=== PATIENT | male | born 1995 | race Caucasian/White ===

== ENCOUNTER 2020-06-20 00:57 | Emergency (ER) | payer SELFPAY ==
[~2020-06-20] VITALS: Ht 182.9 cm; Wt 113.6 kg
[~2020-06-20 00:57] MED LIST: EFFEXOR XR75 MG/CAP PO; MOTRIN 800800 MG/TAB PO; WELLBUTRIN XL300 M1 PO
[2020-06-20 00:58] VITALS: TEMP 97.6
[2020-06-20 01:36] LABS: ARTERIAL BLD GAS TCO2 CT 12.5; ARTERIAL BLOOD GAS BASE EXCESS -12.2 (-2-2); ARTERIAL BLOOD GAS HCO3 11.7 meq/L (22-26); ARTERIAL BLOOD GAS PCO2 24.3 mmHg (35-45); ARTERIAL BLOOD GAS PO2 83.4 mmHg (80-100)
[2020-06-20 01:49] LABS: MEAN CELL VOLUME 96 fl (80.0-100.0); MEAN CORPUSCULAR HGB CONC 34 g/dl (33.0-37.0); MEAN PLATELET VOLUME 12.1 fl (7.4-10.4); PLATELET COUNT 162 K/mm3 (130-400); RED BLOOD COUNT 5.53 M/mm3 (4.20-5.60); REDCELL DISTRIBUTION WIDTH-CV 13.1 % (11.5-14.5)
[2020-06-20 01:50] LABS: HEMATOCRIT 53.2 % (42.0-52.0); HEMOGLOBIN 18.3 g/dl (13.5-18.0); MEAN CORPUSCULAR HEMOGLOBIN 33 pg (27.0-31.0)
[2020-06-20 02:07] LABS: BAND 1 % (0-10); EOSINOPHIL 1 % (0-4); LYMPHOCYTE 24 % (20.0-51.0); NEUTROPHILS 63 % (42.0-75.2)
[2020-06-20 02:08] LABS: PLATELET ESTIMATE DECREASED (NORMAL)
[2020-06-20 02:18] LABS: INR 5.2 (0.8-3.0); PROTHROMBIN TIME 59.3 SECONDS (9.7-12.8)
[2020-06-20 02:53] LABS: ALBUMIN 4.1 gm/dL (3.5-5.0); BILIRUBIN,TOTAL 1.4 mg/dL (0.0-1.0); CALCIUM 8.6 mg/dL (8.4-10.2); CREATININE, serum 1.42 (0.66-1.25); TOTAL PROTEIN 7.9 gm/dL (6.4-8.2)
[2020-06-20 02:57] LABS: POTASSIUM 2.7 mmol/L (3.4-5.0)
[2020-06-20 02:58] LABS: PARTIAL THROMBOPLASTIN TIME > 400.0 SECONDS (26.0-37.0)
[2020-06-20 03:37] VITALS: BP 125/88; PULSE 124
== END 2020-06-20 03:37 | disposition short-term general hospital (02) ==
LOC: COL.ER 00:57
PROVIDERS: Emergency Medicine
DX: U07.1 COVID-19 (principal); F41.0 Panic disorder [episodic paroxysmal anxiety]; F17.290 Nicotine dependence, other tobacco product, uncomplicated
CPT/HCPCS: J1644; J2997; J7030; Q9967

== ENCOUNTER 2020-07-06 16:18 | Emergency (ER) | payer SELFPAY ==
[~2020-07-06] VITALS: Ht 182.9 cm; Wt 111.4 kg
[2020-07-06 16:30] VITALS: TEMP 97.8
[2020-07-06 17:13] LABS: BASO # 0.1 (0.0-0.2); BASO % 1.2 % (0.0-2.0); EOS # 0.2 (0.0-0.7); EOS % 2.3 % (0-4.0); GRAN # 4.6 (1.4-6.5); HEMATOCRIT 48.3 % (42.0-52.0); HEMOGLOBIN 16.5 g/dl (13.5-18.0); LYMPH # 2.2 (1.2-3.4); LYMPH % 29.4 % (20.0-51.0); MEAN CELL VOLUME 94 fl (80.0-100.0); MEAN CORPUSCULAR HEMOGLOBIN 32 pg (27.0-31.0); MEAN CORPUSCULAR HGB CONC 34 g/dl (33.0-37.0); MEAN PLATELET VOLUME 10.4 fl (7.4-10.4); MONO # 0.4 (0.1-0.6); MONO % 4.8 % (1.7-9.3); PLATELET COUNT 420 K/mm3 (130-400); RED BLOOD COUNT 5.12 M/mm3 (4.20-5.60)
[2020-07-06 17:29] LABS: ARTERIAL BLD GAS O2 SATURATION 96.2 % (92-100); ARTERIAL BLD GAS TCO2 CT 24.2; ARTERIAL BLOOD GAS BASE EXCESS 1.3 (-2-2); ARTERIAL BLOOD GAS HCO3 23.2 meq/L (22-26); ARTERIAL BLOOD GAS PCO2 30.2 mmHg (35-45); ARTERIAL BLOOD GAS PO2 77.2 mmHg (80-100)
[2020-07-06 17:29] LABS: ALBUMIN 4.6 gm/dL (3.5-5.0); BILIRUBIN,TOTAL 0.6 mg/dL (0.0-1.0); CALCIUM 9.9 mg/dL (8.4-10.2); CREATININE, serum 1.06 (0.66-1.25); POTASSIUM 3.5 mmol/L (3.4-5.0); TOTAL PROTEIN 9.4 gm/dL (6.4-8.2)
[2020-07-06 19:32] VITALS: BP 145/91; PULSE 96
== END 2020-07-06 19:42 | disposition home or self-care (01) ==
LOC: COL.ER 16:18
PROVIDERS: Family Medicine
DX: U07.1 COVID-19 (principal); I26.99 Other pulmonary embolism without acute cor pulmonale; F17.290 Nicotine dependence, other tobacco product, uncomplicated
CPT/HCPCS: J7120; Q9967

== ENCOUNTER 2020-07-23 01:22 | Emergency (ER) | payer BC ==
[~2020-07-23] VITALS: Ht 182.9 cm; Wt 111.4 kg
[2020-07-23] MEDS ORDERED: ELIQUIS 5MG PO (01:35)
[2020-07-23] MEDS ORDERED: NEURONTIN300 MG/CAP PO (01:35)
[2020-07-23 01:37] VITALS: TEMP 97.7
[2020-07-23 01:56] LABS: BASO # 0.1 (0.0-0.2); BASO % 0.8 % (0.0-2.0); EOS # 0.2 (0.0-0.7); EOS % 2.6 % (0-4.0); GRAN # 2.9 (1.4-6.5); GRAN % 33.9 % (42.2-75.2); HEMATOCRIT 49.5 % (42.0-52.0); HEMOGLOBIN 17.4 g/dl (13.5-18.0); LYMPH # 4.8 (1.2-3.4); LYMPH % 55.8 % (20.0-51.0); MEAN CELL VOLUME 93 fl (80.0-100.0); MEAN CORPUSCULAR HEMOGLOBIN 33 pg (27.0-31.0); MEAN CORPUSCULAR HGB CONC 35 g/dl (33.0-37.0); MONO # 0.6 (0.1-0.6); MONO % 6.5 % (1.7-9.3); PLATELET COUNT 254 K/mm3 (130-400); RED BLOOD COUNT 5.33 M/mm3 (4.20-5.60); REDCELL DISTRIBUTION WIDTH-CV 13.7 % (11.5-14.5)
[2020-07-23 02:42] LABS: ALANINE AMINOTRANSFERASE 89 U/L (4-49); ALBUMIN 4.7 gm/dL (3.5-5.0); ALKALINE PHOSPHATASE 134 U/L (50-136); ANION GAP 18 mmol/L (7-16); AST,SGOT 89 U/L (15-37); BILIRUBIN,TOTAL 0.7 mg/dL (0.0-1.0); BLOOD UREA NITROGEN 8 mg/dL (9-20); CALCIUM 9.4 mg/dL (8.4-10.2); CARBON DIOXIDE 22 mmol/L (22-30); CHLORIDE 101 mmol/L (98-107); CREATININE, serum 0.99 (0.66-1.25); GLUCOSE 143 mg/dL (74-106); LIPASE 109 U/L (23-300); POTASSIUM 3.5 mmol/L (3.4-5.0); SODIUM 141 mmol/L (137-145); TOTAL PROTEIN 8.8 gm/dL (6.4-8.2)
[2020-07-23 02:45] LABS: INR 1.2 (0.8-3.0); PROTHROMBIN TIME 13.1 SECONDS (9.7-12.8)
[2020-07-23 02:47] LABS: PARTIAL THROMBOPLASTIN TIME 37.5 SECONDS (26.0-37.0)
[2020-07-23 02:55] LABS: TROPONIN-I < 0.012 ng/mL (0.000-0.035)
[2020-07-23 07:16] VITALS: BP 133/95; PULSE 102
== END 2020-07-23 07:16 | disposition home or self-care (01) ==
LOC: COL.ER 01:22
PROVIDERS: Emergency Medicine
DX: R06.02 Shortness of breath (principal); R00.0 Tachycardia, unspecified; I26.92 Saddle embolus of pulmonary artery without acute cor pulmonale; F17.290 Nicotine dependence, other tobacco product, uncomplicated; Z79.01 Long term (current) use of anticoagulants; Z86.718 Personal history of other venous thrombosis and embolism
CPT/HCPCS: Q9967

== ENCOUNTER 2020-08-18 22:46 | Emergency (ER) | payer BC ==
[~2020-08-18] VITALS: Ht 182.9 cm; Wt 113.6 kg
[~2020-08-18 22:46] MED LIST changes: +ELIQUIS 5MG PO; +NEURONTIN300 MG/CAP PO
[2020-08-18 22:55] VITALS: TEMP 98.3
[2020-08-18 23:39] LABS: BASO # 0.1 (0.0-0.2); BASO % 0.9 % (0.0-2.0); EOS # 0.2 (0.0-0.7); EOS % 2.6 % (0-4.0); GRAN # 4.1 (1.4-6.5); GRAN % 59.9 % (42.2-75.2); HEMATOCRIT 46.3 % (42.0-52.0); HEMOGLOBIN 16.3 g/dl (13.5-18.0); LYMPH # 1.9 (1.2-3.4); LYMPH % 26.7 % (20.0-51.0); MEAN CELL VOLUME 92 fl (80.0-100.0); MEAN CORPUSCULAR HEMOGLOBIN 32 pg (27.0-31.0); MEAN CORPUSCULAR HGB CONC 35 g/dl (33.0-37.0); MEAN PLATELET VOLUME 10.2 fl (7.4-10.4); MONO # 0.7 (0.1-0.6); MONO % 9.8 % (1.7-9.3); PLATELET COUNT 340 K/mm3 (130-400); RED BLOOD COUNT 5.06 M/mm3 (4.20-5.60)
[2020-08-18 23:46] LABS: INR 2.8 (0.8-3.0); PROTHROMBIN TIME 31.7 SECONDS (9.7-12.8)
[2020-08-18 23:50] LABS: ALANINE AMINOTRANSFERASE 54 U/L (4-49); ALBUMIN 4.4 gm/dL (3.5-5.0); ALKALINE PHOSPHATASE 90 U/L (50-136); ANION GAP 11 mmol/L (7-16); AST,SGOT 38 U/L (15-37); BILIRUBIN,TOTAL 0.6 mg/dL (0.0-1.0); BLOOD UREA NITROGEN 11 mg/dL (9-20); CALCIUM 9.6 mg/dL (8.4-10.2); CARBON DIOXIDE 21 mmol/L (22-30); CHLORIDE 105 mmol/L (98-107); CREATININE, serum 0.95 (0.66-1.25); GLUCOSE 136 mg/dL (74-106); LIPASE 152 U/L (23-300); POTASSIUM 3.3 mmol/L (3.4-5.0); SODIUM 138 mmol/L (137-145); TOTAL PROTEIN 8.3 gm/dL (6.4-8.2)
[2020-08-19 00:08] LABS: TROPONIN-I < 0.012 ng/mL (0.000-0.035)
[2020-08-19 01:25] VITALS: BP 120/78; PULSE 81
== END 2020-08-19 01:25 | disposition home or self-care (01) ==
LOC: COL.ER 22:46
PROVIDERS: Physician Assistant
DX: R07.89 Other chest pain (principal); F17.210 Nicotine dependence, cigarettes, uncomplicated; Z86.718 Personal history of other venous thrombosis and embolism; Z86.711 Personal history of pulmonary embolism; Z86.16 Personal history of COVID-19; Z79.01 Long term (current) use of anticoagulants

== ENCOUNTER 2020-08-24 08:07 | Inpatient (IN) | payer BC ==
[2020-08-24] VITALS (244 sets, daily range): BP systolic 120–126; BP diastolic 85–94; PULSE 69–79; TEMP 98–99; O2SAT 91–99
[~2020-08-24] VITALS: Ht 182.9 cm; Wt 116.9 kg
[2020-08-24] MEDS ORDERED: FOLIC ACID 11 MG/TA1 PO (09:53)
[2020-08-24] MEDS ORDERED: PROTONIX 40MG T40 MG PO (09:54)
[2020-08-24] MEDS ORDERED: COUMADIN 1010 MG/TAB PO (09:54)
[2020-08-24] MEDS ORDERED: NATURE'S BLEND100 M2 PO (09:55)
[2020-08-24] MEDS ORDERED: TYLENOL 325MG325 MG PO (09:56)
[2020-08-24] MEDS ORDERED: LEXAPRO 10MG10 MG PO (09:57)
[2020-08-24 10:36] LABS: BASO # 0.1 (0.0-0.2); BASO % 1.1 % (0.0-2.0); EOS # 0.1 (0.0-0.7); EOS % 2.2 % (0-4.0); GRAN # 2.5 (1.4-6.5); GRAN % 55.8 % (42.2-75.2); HEMATOCRIT 47.7 % (42.0-52.0); LYMPH # 1.1 (1.2-3.4); LYMPH % 24.6 % (20.0-51.0); MEAN CELL VOLUME 95 fl (80.0-100.0); MEAN CORPUSCULAR HEMOGLOBIN 32 pg (27.0-31.0); MEAN CORPUSCULAR HGB CONC 34 g/dl (33.0-37.0); MEAN PLATELET VOLUME 9.7 fl (7.4-10.4); MONO # 0.7 (0.1-0.6); MONO % 16.1 % (1.7-9.3); PLATELET COUNT 236 K/mm3 (130-400); RED BLOOD COUNT 5.03 M/mm3 (4.20-5.60)
[2020-08-24 10:44] LABS: CALCIUM 8.9 mg/dL (8.4-10.2); CREATININE, serum 1.02 (0.66-1.25); POTASSIUM 4.5 mmol/L (3.4-5.0)
[2020-08-24 12:05] LABS: INR 2.5 (0.8-3.0)
[2020-08-24 17:59] LABS: INR 2.2 (0.8-3.0); PROTHROMBIN TIME 24.4 SECONDS (9.7-12.8)
[2020-08-25] VITALS (701 sets, daily range): BP systolic 101–139; BP diastolic 59–90; PULSE 68–83; TEMP 98.3–98.7; O2SAT 81–100
[2020-08-25 05:41] LABS: BASO % 0.8 % (0.0-2.0); EOS # 0.1 (0.0-0.7); EOS % 2.7 % (0-4.0); GRAN # 3.3 (1.4-6.5); GRAN % 63.4 % (42.2-75.2); HEMATOCRIT 41.9 % (42.0-52.0); HEMOGLOBIN 14.6 g/dl (13.5-18.0); LYMPH # 0.9 (1.2-3.4); LYMPH % 18.1 % (20.0-51.0); MEAN CELL VOLUME 94 fl (80.0-100.0); MEAN CORPUSCULAR HEMOGLOBIN 33 pg (27.0-31.0); MEAN CORPUSCULAR HGB CONC 35 g/dl (33.0-37.0); MEAN PLATELET VOLUME 9.5 fl (7.4-10.4); MONO # 0.8 (0.1-0.6); MONO % 14.6 % (1.7-9.3); PLATELET COUNT 211 K/mm3 (130-400); RED BLOOD COUNT 4.48 M/mm3 (4.20-5.60); REDCELL DISTRIBUTION WIDTH-CV 13.2 % (11.5-14.5)
[2020-08-25 05:48] LABS: INR 1.6 (0.8-3.0); PROTHROMBIN TIME 17.6 SECONDS (9.7-12.8)
[2020-08-26] VITALS (381 sets, daily range): BP systolic 105–121; BP diastolic 70–97; PULSE 56–88; TEMP 98–99; O2SAT 83–99
[2020-08-26 05:48] LABS: BASO # 0.1 (0.0-0.2); BASO % 1.1 % (0.0-2.0); EOS # 0.2 (0.0-0.7); EOS % 3.7 % (0-4.0); GRAN # 2.2 (1.4-6.5); GRAN % 47.9 % (42.2-75.2); HEMATOCRIT 42.8 % (42.0-52.0); HEMOGLOBIN 14.5 g/dl (13.5-18.0); LYMPH # 1.4 (1.2-3.4); LYMPH % 30.2 % (20.0-51.0); MEAN CELL VOLUME 94 fl (80.0-100.0); MEAN CORPUSCULAR HEMOGLOBIN 32 pg (27.0-31.0); MEAN CORPUSCULAR HGB CONC 34 g/dl (33.0-37.0); MEAN PLATELET VOLUME 9.9 fl (7.4-10.4); MONO # 0.8 (0.1-0.6); MONO % 16.7 % (1.7-9.3); PLATELET COUNT 193 K/mm3 (130-400); RED BLOOD COUNT 4.57 M/mm3 (4.20-5.60)
[2020-08-26 06:44] LABS: INR 1.2 (0.8-3.0); PROTHROMBIN TIME 13.1 SECONDS (9.7-12.8)
[2020-08-26] MEDS ORDERED: LOVENOX120 MG/0.8 SQ (14:33)
[2020-08-26 14:57] LABS: COLLECTION METHOD CLEAN CATCH
[2020-08-26 15:05] LABS: PH 6 (5-8); SQUAMOUS EPITHELIAL None Seen /hpf; URINE APPEARANCE Clear; URINE BACTERIA None Seen /hpf; URINE BILIRUBIN Negative (NEGATIVE); URINE BLOOD 2+ (NEGATIVE); URINE COLOR Colorless; URINE GLUCOSE Negative (NEGATIVE); URINE KETONE Negative (NEGATIVE); URINE LEUKOCYTE ESTERASE Negative (NEGATIVE); URINE NITRATE Negative (NEGATIVE); URINE PROTEIN(semi-quant) Negative (NEGATIVE); URINE RBC 0-2 /hpf; URINE UROBILINOGEN Negative (NEGATIVE)
== END 2020-08-26 15:20 | disposition home or self-care (01) | DRG 301 ==
LOC: ICU 09:24
PROVIDERS: Nurse Practitioner; ADMIT Internal Medicine Interventional Cardiology
DX: I82.432 Acute embolism and thrombosis of left popliteal vein (principal); I82.4Z2 Acute embolism and thrombosis of unspecified deep veins of left distal lower extremity; F17.290 Nicotine dependence, other tobacco product, uncomplicated; Z86.16 Personal history of COVID-19; Z86.711 Personal history of pulmonary embolism; Z79.01 Long term (current) use of anticoagulants
CPT/HCPCS: J1644; J2997; J7030; J7040

== ENCOUNTER 2020-09-07 11:29 | Emergency (ER) | payer BC ==
[~2020-09-07] VITALS: Ht 182.9 cm; Wt 115.0 kg
[~2020-09-07 11:29] MED LIST changes: +COUMADIN 1010 MG/TAB PO; +FOLIC ACID 11 MG/TA1 PO; +LEXAPRO 10MG10 MG PO; +LOVENOX120 MG/0.8 SQ; +NATURE'S BLEND100 M2 PO; +PROTONIX 40MG T40 MG PO; +TYLENOL 325MG325 MG PO
[2020-09-07 11:37] VITALS: TEMP 97.4
[2020-09-07 12:11] LABS: BASO % 0.8 % (0.0-2.0); EOS # 0.2 (0.0-0.7); EOS % 3.7 % (0-4.0); GRAN # 3.1 (1.4-6.5); GRAN % 59.8 % (42.2-75.2); HEMATOCRIT 45.2 % (42.0-52.0); HEMOGLOBIN 15.5 g/dl (13.5-18.0); LYMPH # 1.4 (1.2-3.4); LYMPH % 26.4 % (20.0-51.0); MEAN CELL VOLUME 91 fl (80.0-100.0); MEAN CORPUSCULAR HEMOGLOBIN 31 pg (27.0-31.0); MEAN CORPUSCULAR HGB CONC 34 g/dl (33.0-37.0); MONO # 0.5 (0.1-0.6); MONO % 9.1 % (1.7-9.3); PLATELET COUNT 282 K/mm3 (130-400); RED BLOOD COUNT 4.95 M/mm3 (4.20-5.60); REDCELL DISTRIBUTION WIDTH-CV 13.1 % (11.5-14.5)
[2020-09-07 12:14] LABS: INR 4.7 (0.8-3.0)
[2020-09-07 12:15] LABS: ALANINE AMINOTRANSFERASE 47 U/L (4-49); ALBUMIN 4.5 gm/dL (3.5-5.0); ALKALINE PHOSPHATASE 82 U/L (50-136); ANION GAP 14 mmol/L (7-16); AST,SGOT 44 U/L (15-37); BILIRUBIN,TOTAL 0.3 mg/dL (0.0-1.0); BLOOD UREA NITROGEN 9 mg/dL (9-20); CALCIUM 9.3 mg/dL (8.4-10.2); CARBON DIOXIDE 24 mmol/L (22-30); CHLORIDE 103 mmol/L (98-107); CREATININE, serum 1.06 (0.66-1.25); GLUCOSE 97 mg/dL (74-106); POTASSIUM 3.8 mmol/L (3.4-5.0); SODIUM 141 mmol/L (137-145); TOTAL PROTEIN 8.6 gm/dL (6.4-8.2)
[2020-09-07 12:28] LABS: TROPONIN-I < 0.012 ng/mL (0.000-0.035)
[2020-09-07] MEDS ORDERED: PROTONIX 40MG T40 MG PO (14:10)
[2020-09-07 14:15] VITALS: BP 101/68; PULSE 68
== END 2020-09-07 14:16 | disposition home or self-care (01) ==
LOC: COL.ER 11:29
PROVIDERS: Nurse Practitioner Primary Care
DX: R06.00 Dyspnea, unspecified (principal); D68.59 Other primary thrombophilia; R07.9 Chest pain, unspecified; F41.9 Anxiety disorder, unspecified; Z86.718 Personal history of other venous thrombosis and embolism; Z86.16 Personal history of COVID-19; Z86.711 Personal history of pulmonary embolism; Z79.01 Long term (current) use of anticoagulants; Z87.891 Personal history of nicotine dependence
CPT/HCPCS: Q9967

== ENCOUNTER 2020-09-11 09:01 | Emergency (ER) | payer BC ==
[~2020-09-11] VITALS: Ht 182.9 cm; Wt 115.0 kg
[2020-09-11 09:18] VITALS: TEMP 98
[2020-09-11 09:45] LABS: BASO # 0.1 (0.0-0.2); BASO % 1.1 % (0.0-2.0); EOS # 0.2 (0.0-0.7); EOS % 3.7 % (0-4.0); GRAN # 3.2 (1.4-6.5); GRAN % 59.5 % (42.2-75.2); HEMATOCRIT 45.4 % (42.0-52.0); HEMOGLOBIN 15.4 g/dl (13.5-18.0); LYMPH # 1.5 (1.2-3.4); LYMPH % 26.8 % (20.0-51.0); MEAN CELL VOLUME 92 fl (80.0-100.0); MEAN CORPUSCULAR HEMOGLOBIN 31 pg (27.0-31.0); MEAN CORPUSCULAR HGB CONC 34 g/dl (33.0-37.0); MEAN PLATELET VOLUME 9.8 fl (7.4-10.4); MONO # 0.5 (0.1-0.6); MONO % 8.5 % (1.7-9.3); PLATELET COUNT 319 K/mm3 (130-400); RED BLOOD COUNT 4.93 M/mm3 (4.20-5.60); REDCELL DISTRIBUTION WIDTH-CV 13.1 % (11.5-14.5)
[2020-09-11 09:59] LABS: ALANINE AMINOTRANSFERASE 32 U/L (4-49); ALBUMIN 4.4 gm/dL (3.5-5.0); ALKALINE PHOSPHATASE 87 U/L (50-136); ANION GAP 11 mmol/L (7-16); AST,SGOT 35 U/L (15-37); BILIRUBIN,TOTAL 0.3 mg/dL (0.0-1.0); BLOOD UREA NITROGEN 12 mg/dL (9-20); CALCIUM 9.2 mg/dL (8.4-10.2); CARBON DIOXIDE 23 mmol/L (22-30); CHLORIDE 106 mmol/L (98-107); CREATININE, serum 1.03 (0.66-1.25); GLUCOSE 112 mg/dL (74-106); POTASSIUM 3.9 mmol/L (3.4-5.0); SODIUM 140 mmol/L (137-145); TOTAL PROTEIN 8.6 gm/dL (6.4-8.2)
[2020-09-11 10:12] LABS: TROPONIN-I < 0.012 ng/mL (0.000-0.035)
[2020-09-11 10:16] LABS: INR 1.9 (0.8-3.0); PROTHROMBIN TIME 20.9 SECONDS (9.7-12.8)
[2020-09-11 10:18] LABS: PARTIAL THROMBOPLASTIN TIME 40.4 SECONDS (26.0-37.0)
[2020-09-11 10:21] LABS: D-DIMER < 200.00 ng/mLDDu (200-230)
[2020-09-11 10:50] VITALS: BP 117/84; PULSE 79
== END 2020-09-11 11:00 | disposition home or self-care (01) ==
LOC: COL.ER 09:01
PROVIDERS: Family Medicine
DX: R07.89 Other chest pain (principal); R06.02 Shortness of breath; D68.59 Other primary thrombophilia; F17.290 Nicotine dependence, other tobacco product, uncomplicated; Z86.711 Personal history of pulmonary embolism; Z86.718 Personal history of other venous thrombosis and embolism; Z79.01 Long term (current) use of anticoagulants

== ENCOUNTER 2020-09-25 17:37 | Emergency (ER) | payer BC ==
[~2020-09-25] VITALS: Ht 182.9 cm; Wt 115.9 kg
[2020-09-25 17:48] VITALS: TEMP 98.3
[2020-09-25 18:12] LABS: BASO # 0.1 (0.0-0.2); BASO % 0.8 % (0.0-2.0); EOS # 0.3 (0.0-0.7); EOS % 3.4 % (0-4.0); GRAN % 56.8 % (42.2-75.2); HEMATOCRIT 46.8 % (42.0-52.0); HEMOGLOBIN 16.2 g/dl (13.5-18.0); LYMPH # 2.8 (1.2-3.4); LYMPH % 31.1 % (20.0-51.0); MEAN CELL VOLUME 91 fl (80.0-100.0); MEAN CORPUSCULAR HEMOGLOBIN 32 pg (27.0-31.0); MEAN CORPUSCULAR HGB CONC 35 g/dl (33.0-37.0); MEAN PLATELET VOLUME 9.8 fl (7.4-10.4); MONO # 0.7 (0.1-0.6); MONO % 7.6 % (1.7-9.3); PLATELET COUNT 302 K/mm3 (130-400); RED BLOOD COUNT 5.13 M/mm3 (4.20-5.60); REDCELL DISTRIBUTION WIDTH-CV 13.2 % (11.5-14.5)
[2020-09-25 18:30] LABS: INR 3.2 (0.8-3.0); PROTHROMBIN TIME 35.8 SECONDS (9.7-12.8)
[2020-09-25] MEDS ORDERED: ATIVAN 0.50.5 MG/TAB PO (18:53)
[2020-09-25] MEDS ORDERED: COUMADIN4 MG PO (18:55)
[2020-09-25 19:00] VITALS: BP 121/83; PULSE 83
[2020-09-25 19:04] LABS: ALANINE AMINOTRANSFERASE 27 U/L (4-49); ALBUMIN 4.9 gm/dL (3.5-5.0); ALKALINE PHOSPHATASE 106 U/L (50-136); ANION GAP 13 mmol/L (7-16); AST,SGOT 37 U/L (15-37); BILIRUBIN,TOTAL 0.4 mg/dL (0.0-1.0); BLOOD UREA NITROGEN 12 mg/dL (9-20); CALCIUM 9.6 mg/dL (8.4-10.2); CARBON DIOXIDE 22 mmol/L (22-30); CHLORIDE 106 mmol/L (98-107); CREATININE, serum 0.87 (0.66-1.25); GLUCOSE 102 mg/dL (74-106); POTASSIUM 3.5 mmol/L (3.4-5.0); SODIUM 141 mmol/L (137-145); TOTAL PROTEIN 9.9 gm/dL (6.4-8.2)
[2020-09-25 19:18] LABS: TROPONIN-I < 0.012 ng/mL (0.000-0.035)
== END 2020-09-25 19:11 | disposition home or self-care (01) ==
LOC: COL.ER 17:37
PROVIDERS: Emergency Medicine
DX: R07.89 Other chest pain (principal); D68.59 Other primary thrombophilia; R06.00 Dyspnea, unspecified; R00.2 Palpitations; F41.0 Panic disorder [episodic paroxysmal anxiety]; Z86.711 Personal history of pulmonary embolism; Z79.01 Long term (current) use of anticoagulants; Z86.718 Personal history of other venous thrombosis and embolism
CPT/HCPCS: J2060

== ENCOUNTER 2020-09-27 17:55 | Emergency (ER) | payer BC ==
[~2020-09-27] VITALS: Ht 182.9 cm; Wt 115.9 kg
[~2020-09-27 17:55] MED LIST changes: +ATIVAN 0.50.5 MG/TAB PO; +COUMADIN4 MG PO
[2020-09-27 17:58] VITALS: TEMP 98.5
[2020-09-27 18:15] LABS: BASO # 0.1 (0.0-0.2); BASO % 0.9 % (0.0-2.0); EOS # 0.4 (0.0-0.7); EOS % 3.9 % (0-4.0); GRAN # 5.6 (1.4-6.5); GRAN % 61.2 % (42.2-75.2); HEMATOCRIT 46.5 % (42.0-52.0); HEMOGLOBIN 15.9 g/dl (13.5-18.0); LYMPH # 2.3 (1.2-3.4); LYMPH % 25.5 % (20.0-51.0); MEAN CELL VOLUME 92 fl (80.0-100.0); MEAN CORPUSCULAR HEMOGLOBIN 31 pg (27.0-31.0); MEAN CORPUSCULAR HGB CONC 34 g/dl (33.0-37.0); MEAN PLATELET VOLUME 9.8 fl (7.4-10.4); MONO # 0.8 (0.1-0.6); MONO % 8.2 % (1.7-9.3); PLATELET COUNT 319 K/mm3 (130-400); RED BLOOD COUNT 5.08 M/mm3 (4.20-5.60); REDCELL DISTRIBUTION WIDTH-CV 13.2 % (11.5-14.5)
[2020-09-27 18:20] LABS: INR 3.1 (0.8-3.0); PROTHROMBIN TIME 35.4 SECONDS (9.7-12.8)
[2020-09-27 19:10] VITALS: BP 107/82; PULSE 80
== END 2020-09-27 19:10 | disposition home or self-care (01) ==
LOC: COL.ER 17:55
PROVIDERS: Family Medicine
DX: K06.8 Other specified disorders of gingiva and edentulous alveolar ridge (principal); G89.29 Other chronic pain; R07.9 Chest pain, unspecified; M79.662 Pain in left lower leg; Z86.711 Personal history of pulmonary embolism; Z86.718 Personal history of other venous thrombosis and embolism; Z79.01 Long term (current) use of anticoagulants

== ENCOUNTER → 2020-09-28 | Outpatient (CLI) | payer BC ==
[~2020-09-28] MED LIST changes: +ATIVAN2 MG PO; +CLEOCIN HCL300 MG PO; +LAMICTAL 100MG100 MG PO; +PROAIR HFA0.09 MG/AC IH; +SEROQUEL 200MG200 MG PO; +VIAGRA100 M1 PO; +XARELTO20 MG PO
== END ==
LOC: COL.VAS 08:10
DX: I82.462 Acute embolism and thrombosis of left calf muscular vein (principal)

== ENCOUNTER 2020-10-05 12:27 | Emergency (ER) | payer BC ==
[~2020-10-05] VITALS: Ht 182.9 cm; Wt 120.0 kg
[~2020-10-05 12:27] MED LIST changes: -ATIVAN2 MG PO; -CLEOCIN HCL300 MG PO; -LAMICTAL 100MG100 MG PO; -PROAIR HFA0.09 MG/AC IH; -SEROQUEL 200MG200 MG PO; -VIAGRA100 M1 PO; -XARELTO20 MG PO
[2020-10-05 12:43] VITALS: BP 143/99; TEMP 98.3
[2020-10-05 13:26] LABS: INR 3.9 (0.8-3.0); PROTHROMBIN TIME 43.7 SECONDS (9.7-12.8)
[2020-10-05 14:17] VITALS: PULSE 84
== END 2020-10-05 14:18 | disposition home or self-care (01) ==
LOC: COL.ER 12:27
PROVIDERS: Emergency Medicine
DX: R04.0 Epistaxis (principal); R79.1 Abnormal coagulation profile; F17.290 Nicotine dependence, other tobacco product, uncomplicated; Z79.01 Long term (current) use of anticoagulants; Z86.16 Personal history of COVID-19

== ENCOUNTER 2021-01-05 12:41 | Inpatient (IN) | payer BC ==
[~2021-01-05] VITALS: Ht 182.9 cm; Wt 126.7 kg
[2021-01-05] VITALS (78 sets, daily range): BP systolic 92–126; BP diastolic 42–86; PULSE 106–119; TEMP 97.7–98.6; O2SAT 90–99
[2021-01-05 14:11] LABS: BASO % 0.3 % (0.0-2.0); EOS % 0.1 % (0-4.0); GRAN # 12.4 (1.4-6.5); GRAN % 84.9 % (42.2-75.2); HEMATOCRIT 46.9 % (42.0-52.0); HEMOGLOBIN 15.5 g/dl (13.5-18.0); LYMPH # 0.7 (1.2-3.4); LYMPH % 5.1 % (20.0-51.0); MEAN CELL VOLUME 92 fl (80.0-100.0); MEAN CORPUSCULAR HEMOGLOBIN 31 pg (27.0-31.0); MEAN CORPUSCULAR HGB CONC 33 g/dl (33.0-37.0); MEAN PLATELET VOLUME 9.9 fl (7.4-10.4); MONO # 1.4 (0.1-0.6); MONO % 9.3 % (1.7-9.3); PLATELET COUNT 281 K/mm3 (130-400); RED BLOOD COUNT 5.08 M/mm3 (4.20-5.60); REDCELL DISTRIBUTION WIDTH-CV 13.9 % (11.5-14.5)
[2021-01-05 14:20] LABS: ALANINE AMINOTRANSFERASE 32 U/L (4-49); ALBUMIN 4.7 gm/dL (3.5-5.0); ALCOHOL(ethanol),MEDICAL 15 mg/dL; ALKALINE PHOSPHATASE 97 U/L (50-136); ANION GAP 15 mmol/L (7-16); AST,SGOT 32 U/L (15-37); BILIRUBIN,TOTAL 0.5 mg/dL (0.0-1.0); BLOOD UREA NITROGEN 10 mg/dL (9-20); CALCIUM 9.4 mg/dL (8.4-10.2); CARBON DIOXIDE 21 mmol/L (22-30); CHLORIDE 106 mmol/L (98-107); CREATININE, serum 1.17 (0.66-1.25); GLUCOSE 105 mg/dL (74-106); POTASSIUM 4.4 mmol/L (3.4-5.0); SODIUM 143 mmol/L (137-145); TOTAL PROTEIN 8.7 gm/dL (6.4-8.2)
[2021-01-05 14:25] LABS: ACETAMINOPHEN < 10 ug/mL (10-30); SALICYLATE < 1.0 mg/dL
[2021-01-05 15:12] LABS: INR 5.1 (0.8-3.0)
[2021-01-05] MEDS ORDERED: ATIVAN2 MG PO (16:51)
[2021-01-05] MEDS ORDERED: WELLBUTRIN XL300 M1 PO (16:51)
[2021-01-05] MEDS ORDERED: SEROQUEL 200MG200 MG PO (16:51)
[2021-01-05] MEDS ORDERED: XARELTO20 MG PO (16:52)
[2021-01-05] MEDS ORDERED: LAMICTAL 100MG100 MG PO (16:53)
--- NOTE | 2021-01-05 17:20 | NUR ---
Patient arrive to ICU room 6. He is told about suicide precautions and having to keep all personal items locked up with security. He verbalizes understanding. Patient is placed in dawn gown and room is made as ligature free as possible with zip ties to the cords and removing any harmful materials as best as possible. Bed Alarm activated upon arrival.
[2021-01-05] MEDS ORDERED: VIAGRA100 M1 PO (17:37)
[2021-01-05 18:19] LABS: HEMATOCRIT 41.1 % (42.0-52.0); HEMOGLOBIN 13.7 g/dl (13.5-18.0)
--- NOTE | 2021-01-05 18:39 | NUR ---
BELONGINGS (CLOTHES, SHOES, VAPE PEN, KEYS, PHONE, MEDICATION BOTTLES WITH MEDS IN THEM) SET TO SECURITY FOR SAFE KEEPING.
[2021-01-05 18:45] LABS: INR 7.2 (0.8-3.0); PROTHROMBIN TIME 81.3 SECONDS (9.7-12.8)
--- NOTE | 2021-01-05 19:30 | NUR ---
Report given to BRANDEN Boyle. Patient agrees to let this RN update his mother via phone to let her know he is safe.
[2021-01-05 23:21] LABS: HEMATOCRIT 40.3 % (42.0-52.0); HEMOGLOBIN 13.2 g/dl (13.5-18.0)
[2021-01-05 23:31] LABS: CALCIUM 8.8 mg/dL (8.4-10.2); CREATININE, serum 0.98 (0.66-1.25); POTASSIUM 3.8 mmol/L (3.4-5.0)
[2021-01-05 23:33] LABS: INR 7.8 (0.8-3.0); PROTHROMBIN TIME 88.8 SECONDS (9.7-12.8)
[2021-01-06] VITALS (738 sets, daily range): BP systolic 87–160; BP diastolic 45–104; PULSE 95–110; TEMP 97–98.9; O2SAT 84–100
[2021-01-06 02:03] LABS: COLLECTION METHOD CLEAN CATCH
[2021-01-06 02:10] LABS: MUCOUS Present /lpf; PH 5 (5-8); SQUAMOUS EPITHELIAL None Seen /hpf; URINE APPEARANCE Hazy; URINE BACTERIA None Seen /hpf; URINE BILIRUBIN Negative (NEGATIVE); URINE BLOOD Negative (NEGATIVE); URINE COLOR Yellow; URINE GLUCOSE Negative (NEGATIVE); URINE KETONE Negative (NEGATIVE); URINE LEUKOCYTE ESTERASE Negative (NEGATIVE); URINE NITRATE Negative (NEGATIVE); URINE PROTEIN(semi-quant) Negative (NEGATIVE); URINE RBC None Seen /hpf; URINE UROBILINOGEN Negative (NEGATIVE); URINE WBC 0-2 /hpf
[2021-01-06 02:15] LABS: TRICYCLIC ANTIDEPRESS URINE POSITIVE
[2021-01-06 06:03] LABS: BASO % 0.4 % (0.0-2.0); EOS # 0.1 (0.0-0.7); EOS % 1.3 % (0-4.0); GRAN % 82.1 % (42.2-75.2); HEMATOCRIT 40.1 % (42.0-52.0); LYMPH % 9.3 % (20.0-51.0); MEAN CELL VOLUME 94 fl (80.0-100.0); MEAN CORPUSCULAR HEMOGLOBIN 30 pg (27.0-31.0); MEAN CORPUSCULAR HGB CONC 32 g/dl (33.0-37.0); MEAN PLATELET VOLUME 9.9 fl (7.4-10.4); MONO # 0.7 (0.1-0.6); MONO % 6.6 % (1.7-9.3); PLATELET COUNT 241 K/mm3 (130-400); RED BLOOD COUNT 4.29 M/mm3 (4.20-5.60); REDCELL DISTRIBUTION WIDTH-CV 13.9 % (11.5-14.5)
[2021-01-06 06:15] LABS: PROTHROMBIN TIME 59.1 SECONDS (9.7-12.8)
[2021-01-06 06:16] LABS: INR 5.2 (0.8-3.0)
[2021-01-06 06:19] LABS: ALANINE AMINOTRANSFERASE 22 U/L (4-49); ALBUMIN 3.5 gm/dL (3.5-5.0); ALKALINE PHOSPHATASE 74 U/L (50-136); ANION GAP 4 mmol/L (7-16); AST,SGOT 22 U/L (15-37); BILIRUBIN,TOTAL 0.8 mg/dL (0.0-1.0); BLOOD UREA NITROGEN 11 mg/dL (9-20); CALCIUM 8.5 mg/dL (8.4-10.2); CARBON DIOXIDE 28 mmol/L (22-30); CHLORIDE 105 mmol/L (98-107); CREATININE, serum 1.06 (0.66-1.25); GLUCOSE 116 mg/dL (74-106); POTASSIUM 3.9 mmol/L (3.4-5.0); SODIUM 137 mmol/L (137-145); TOTAL PROTEIN 6.9 gm/dL (6.4-8.2)
[2021-01-06 06:43] LABS: C-REACTIVE PROTEIN 13.7 mg/dL (0.0-0.9)
[2021-01-06 06:53] LABS: TROPONIN-I < 0.012 ng/mL (0.000-0.035)
--- NOTE | 2021-01-06 13:01 | NUR ---
Patient is hospitalized for a suicide attempt. Will await psychiatry screening for placement disposition. Case management will continue to follow and assist as needed.
--- NOTE | 2021-01-06 16:00 | NUR ---
Patient resting in bed; pleasant and cooperative with cares. No concerns at this time. Will continue to monitor.
[2021-01-07] VITALS (266 sets, daily range): BP systolic 105–120; BP diastolic 68–85; PULSE 91–121; TEMP 98–98.1; O2SAT 73–100
[2021-01-07 06:36] LABS: BASO % 0.6 % (0.0-2.0); EOS # 0.2 (0.0-0.7); EOS % 4.2 % (0-4.0); GRAN # 3.4 (1.4-6.5); GRAN % 62.8 % (42.2-75.2); HEMATOCRIT 38.2 % (42.0-52.0); HEMOGLOBIN 12.1 g/dl (13.5-18.0); LYMPH # 1.3 (1.2-3.4); LYMPH % 23.5 % (20.0-51.0); MEAN CELL VOLUME 96 fl (80.0-100.0); MEAN CORPUSCULAR HEMOGLOBIN 30 pg (27.0-31.0); MEAN CORPUSCULAR HGB CONC 32 g/dl (33.0-37.0); MEAN PLATELET VOLUME 10.6 fl (7.4-10.4); MONO # 0.5 (0.1-0.6); MONO % 8.5 % (1.7-9.3); PLATELET COUNT 245 K/mm3 (130-400); RED BLOOD COUNT 3.98 M/mm3 (4.20-5.60); REDCELL DISTRIBUTION WIDTH-CV 13.8 % (11.5-14.5)
[2021-01-07 06:41] LABS: INR 1.7 (0.8-3.0); PROTHROMBIN TIME 19.2 SECONDS (9.7-12.8)
[2021-01-07 06:43] LABS: ALBUMIN 3.3 gm/dL (3.5-5.0); BILIRUBIN,TOTAL 0.2 mg/dL (0.0-1.0); CALCIUM 8.2 mg/dL (8.4-10.2); CREATININE, serum 1.16 (0.66-1.25); POTASSIUM 3.7 mmol/L (3.4-5.0); TOTAL PROTEIN 6.6 gm/dL (6.4-8.2)
--- NOTE | 2021-01-07 09:58 | NUR ---
Plan to be screened by Psych and assessed for SI and Crisis STabilizations. SW met with patient in room about care. Patient reports that he resides locally and has two room mates but his NOK is his Father Ron . Patient denies having a DPOA. Patient shares that he has a therapist at [facility] and Herb Penaloza. Patient shares that he is concerned with losing his job at [employer] due to this issues. Educated on the services from [employer] and supports. Will follow after Screen.
--- NOTE | 2021-01-07 10:30 | NUR ---
Pt cleared by MD Michelle medically to be screened by [facility] services. Pt happy to hear he will be screened. Pt pleasant, states boredem and continues to deny suicidal thoughts.
--- NOTE | 2021-01-07 12:00 | NUR ---
Pt has been screened by [facility] - Pt OK to discharge with saftey plan.
[2021-01-07] MEDS ORDERED: CLEOCIN HCL300 MG PO (13:32)
[2021-01-07] MEDS ORDERED: PROAIR HFA0.09 MG/AC IH (13:32)
[2021-01-07] MEDS ORDERED: XARELTO20 MG PO (13:35)
--- NOTE | 2021-01-07 14:00 | NUR ---
Pt escorted out of buidling. Accompanied by pt's girlfriend/roommate. All belongings sent with pt, home medications given to girlfriend/roommate.
== END 2021-01-07 14:00 | disposition home or self-care (01) | DRG 917 ==
LOC: COL.ER 12:41 → ICU 15:33
PROVIDERS: Emergency Medicine; Nurse Practitioner Primary Care; ADMIT Internal Medicine
DX: T45.512A Poisoning by anticoagulants, intentional self-harm, initial encounter (principal); J69.0 Pneumonitis due to inhalation of food and vomit; T43.222A Poisoning by selective serotonin reuptake inhibitors, intentional self-harm, initial encounter; T43.592A Poisoning by other antipsychotics and neuroleptics, intentional self-harm, initial encounter; T43.292A Poisoning by other antidepressants, intentional self-harm, initial encounter; F41.9 Anxiety disorder, unspecified; F32.9 Major depressive disorder, single episode, unspecified; Z86.718 Personal history of other venous thrombosis and embolism; Z86.711 Personal history of pulmonary embolism; Z86.16 Personal history of COVID-19; Z20.822 Contact with and (suspected) exposure to COVID-19
CPT/HCPCS: 99233-AI; 99239; A9284; C9113; J0456; J0696; J3475; J7030; J7050; J7120

== ENCOUNTER → 2021-05-25 | Outpatient (CLI) | payer BC ==
[~2021-05-25] MED LIST changes: +ATIVAN2 MG PO; +CLEOCIN HCL300 MG PO; +LAMICTAL 100MG100 MG PO; +PROAIR HFA0.09 MG/AC IH; +SEROQUEL 200MG200 MG PO; +VIAGRA100 M1 PO; +XARELTO20 MG PO
== END ==
LOC: COL.VAS 13:33
DX: M79.89 Other specified soft tissue disorders (principal)

== ENCOUNTER 2021-06-09 16:39 | Emergency (ER) | payer BC ==
[~2021-06-09] VITALS: Ht 182.9 cm; Wt 124.1 kg
[2021-06-09 17:02] VITALS: TEMP 98.4
[2021-06-09 18:23] VITALS: BP 133/84; PULSE 79
== END 2021-06-09 18:21 | disposition home or self-care (01) ==
LOC: COL.ER 16:39
DX: J06.9 Acute upper respiratory infection, unspecified (principal); Z86.711 Personal history of pulmonary embolism

== ENCOUNTER 2021-11-07 17:40 | Emergency (ER) | payer SELFPAY ==
[~2021-11-07] VITALS: Ht 182.9 cm; Wt 113.6 kg
[2021-11-07 18:01] VITALS: TEMP 98.4
[2021-11-07 19:04] LABS: BASO # 0.1 K/mm3 (0.0-0.2); BASO % 0.8 % (0.0-2.0); EOS # 0.1 K/mm3 (0.0-0.7); EOS % 1.5 % (0.0-4.0); GRAN # 5.6 K/mm3 (1.4-6.5); GRAN % 72.3 % (42.2-75.2); HEMATOCRIT 48.1 % (42.0-52.0); HEMOGLOBIN 17.2 g/dl (13.5-18.0); LYMPH # 1.2 K/mm3 (1.2-3.4); LYMPH % 15.6 % (20.0-51.0); MEAN CELL VOLUME 94 fl (80.0-100.0); MEAN CORPUSCULAR HEMOGLOBIN 34 pg (27-31); MEAN CORPUSCULAR HGB CONC 36 g/dl (33.0-37.0); MEAN PLATELET VOLUME 10.5 fl (7.4-10.4); MONO # 0.7 K/mm3 (0.1-0.6); MONO % 9.5 % (1.7-9.3); PLATELET COUNT 243 K/mm3 (130-400); REDCELL DISTRIBUTION WIDTH-CV 13.2 % (11.5-14.5)
[2021-11-07 19:20] LABS: ALBUMIN 4.1 gm/dL (3.5-5.0); BILIRUBIN,TOTAL 0.9 mg/dL (0.2-1.2); CALCIUM 9.6 mg/dL (8.4-10.2); CREATININE, serum 0.97 mg/dL (0.72-1.25); POTASSIUM 3.6 mmol/L (3.5-4.5); TOTAL PROTEIN 8.1 gm/dL (6.2-8.1)
[2021-11-07 19:41] LABS: COLLECTION METHOD CLEAN CATCH
[2021-11-07 19:56] LABS: MUCOUS Present (NOT PRESENT); PH 7 (5-8); SQUAMOUS EPITHELIAL None Seen /hpf (0-10); URINE APPEARANCE Clear (CLEAR/HAZY); URINE BACTERIA None Seen /hpf (NONE SEEN); URINE BILIRUBIN Negative (NEGATIVE); URINE BLOOD Negative (NEGATIVE); URINE COLOR Yellow (YELLOW); URINE GLUCOSE Negative (NEGATIVE); URINE KETONE Negative (NEGATIVE); URINE LEUKOCYTE ESTERASE Negative (NEGATIVE); URINE NITRATE Negative (NEGATIVE); URINE PROTEIN(semi-quant) Negative (NEGATIVE); URINE RBC 0-2 /hpf (0-2)
[2021-11-07] MEDS ORDERED: PROTONIX 40MG T40 MG PO (20:09)
[2021-11-07 20:20] VITALS: BP 140/98; PULSE 91
== END 2021-11-07 20:20 | disposition home or self-care (01) ==
LOC: COL.ER 17:40
PROVIDERS: Physician Assistant
DX: R10.84 Generalized abdominal pain (principal); R11.2 Nausea with vomiting, unspecified; R74.01 Elevation of levels of liver transaminase levels; Z87.19 Personal history of other diseases of the digestive system
CPT/HCPCS: J0500; J7030

== ENCOUNTER 2022-01-14 04:50 | Emergency (ER) | payer SELFPAY ==
[~2022-01-14] VITALS: Ht 182.9 cm; Wt 104.5 kg
[~2022-01-14 04:50] MED LIST changes: +LIBRIUM 25M25 MG/CAP PO; +PHENERGAN12.5 MG/SU RC
[2022-01-14 05:52] LABS: ALCOHOL(ethanol),MEDICAL 276 mg/dL (0-10); ANION GAP 26 mmol/L (7-16); BLOOD UREA NITROGEN 8 mg/dL (9-21); CALCIUM 8.4 mg/dL (8.4-10.2); CARBON DIOXIDE 18 mmol/L (22-29); CHLORIDE 96 mmol/L (98-107); GLUCOSE 91 mg/dL (70-99); SODIUM 140 mmol/L (136-145)
[2022-01-14 06:00] LABS: TROPONIN-I < 0.010 ng/mL (0.00-0.033)
[2022-01-14] MEDS ORDERED: PROAIR HFA0.09 MG/AC IH (07:04)
[2022-01-14] MEDS ORDERED: ELIQUIS 5MG PO (07:04)
[2022-01-14] MEDS ORDERED: AMOXICILLIN 8751 TAB PO (07:04)
[2022-01-14] MEDS ORDERED: MEDROL 4MG DOSPA4 MG PO (07:04)
[2022-01-14] MEDS ORDERED: ZITHROMAX 250M250 MG PO (07:04)
[2022-01-14 08:34] VITALS: BP 123/64; PULSE 110; TEMP 98.5
== END 2022-01-14 08:30 | disposition home or self-care (01) ==
LOC: COL.ER 04:50
PROVIDERS: Emergency Medicine
DX: J18.9 Pneumonia, unspecified organism (principal); F10.129 Alcohol abuse with intoxication, unspecified; R79.1 Abnormal coagulation profile; Z86.711 Personal history of pulmonary embolism; Z86.16 Personal history of COVID-19; Z20.822 Contact with and (suspected) exposure to COVID-19; Z79.01 Long term (current) use of anticoagulants; Z28.310 Unvaccinated for COVID-19
CPT/HCPCS: J0456; J0696; J1100; J1885; J7030; J7050; Q9967

== ENCOUNTER 2022-01-16 06:01 | Emergency (ER) | payer SELFPAY ==
[~2022-01-16] VITALS: Ht 182.9 cm; Wt 104.5 kg
[~2022-01-16 06:01] MED LIST changes: +AMOXICILLIN 8751 TAB PO; +MEDROL 4MG DOSPA4 MG PO; +ZITHROMAX 250M250 MG PO
[2022-01-16 06:17] VITALS: TEMP 97
[2022-01-16 06:50] VITALS: BP 121/83; PULSE 101
== END 2022-01-16 06:52 | disposition home or self-care (01) ==
LOC: COL.ER 06:01
DX: F41.9 Anxiety disorder, unspecified (principal); F17.290 Nicotine dependence, other tobacco product, uncomplicated; Z86.711 Personal history of pulmonary embolism; Z86.16 Personal history of COVID-19; Z86.718 Personal history of other venous thrombosis and embolism

== ENCOUNTER 2022-02-23 22:05 | Emergency (ER) | payer SELFPAY ==
[~2022-02-23] VITALS: Ht 182.9 cm; Wt 104.5 kg
[2022-02-23 22:06] VITALS: TEMP 98.7
[2022-02-23 22:28] LABS: BASO % 0.9 % (0.0-2.0); EOS % 0.4 % (0.0-4.0); GRAN # 2.5 K/mm3 (1.4-6.5); GRAN % 53.9 % (42.2-75.2); HEMATOCRIT 46.4 % (42.0-52.0); HEMOGLOBIN 16.7 g/dl (13.5-18.0); LYMPH # 1.5 K/mm3 (1.2-3.4); LYMPH % 33.3 % (20.0-51.0); MEAN CELL VOLUME 95 fl (80.0-100.0); MEAN CORPUSCULAR HEMOGLOBIN 34 pg (27-31); MEAN CORPUSCULAR HGB CONC 36 g/dl (33.0-37.0); MEAN PLATELET VOLUME 10.1 fl (7.4-10.4); MONO # 0.5 K/mm3 (0.1-0.6); MONO % 11.3 % (1.7-9.3); PLATELET COUNT 175 K/mm3 (130-400); RED BLOOD COUNT 4.87 M/mm3 (4.20-5.60); REDCELL DISTRIBUTION WIDTH-CV 13.9 % (11.5-14.5)
[2022-02-23 22:42] LABS: ALANINE AMINOTRANSFERASE 277 U/L (0-55); ALBUMIN 4.2 gm/dL (3.5-5.0); ALKALINE PHOSPHATASE 172 U/L (40-150); ANION GAP 20 mmol/L (7-16); AST,SGOT 434 U/L (5-34); BILIRUBIN,TOTAL 1.2 mg/dL (0.2-1.2); BLOOD UREA NITROGEN 6 mg/dL (9-21); CARBON DIOXIDE 22 mmol/L (22-29); CHLORIDE 99 mmol/L (98-107); GLUCOSE 111 mg/dL (70-99); POTASSIUM 3.7 mmol/L (3.5-4.5); SODIUM 141 mmol/L (136-145); TOTAL PROTEIN 8.5 gm/dL (6.2-8.1)
[2022-02-23 22:44] LABS: COLLECTION METHOD CLEAN CATCH
[2022-02-23 22:51] LABS: MUCOUS Present (NOT PRESENT); SQUAMOUS EPITHELIAL None Seen /hpf (0-10); URINE APPEARANCE Clear (CLEAR/HAZY); URINE BACTERIA None Seen /hpf (NONE SEEN); URINE COLOR Yellow (YELLOW); URINE RBC 0-2 /hpf (0-2)
[2022-02-23 22:52] LABS: PH 6.5 (5.0-8.5); URINE BLOOD Negative (NEGATIVE); URINE GLUCOSE Negative (NEGATIVE); URINE KETONE TRACE (NEGATIVE); URINE NITRATE Negative (NEGATIVE); URINE PROTEIN(semi-quant) 1+ (NEGATIVE)
[2022-02-23 22:54] LABS: ACETAMINOPHEN < 1.0 ug/mL (10-30); LIPASE 239 U/L (8-78); SALICYLATE < 5.0 mg/dL (15.0-30.0)
[2022-02-23 22:55] LABS: ALCOHOL(ethanol),MEDICAL 342 mg/dL (0-10)
[2022-02-23 22:59] LABS: TRICYCLIC ANTIDEPRESS URINE NEGATIVE
[2022-02-24 02:02] VITALS: BP 125/104; PULSE 94
== END 2022-02-24 02:05 ==
LOC: COL.ER 22:05
PROVIDERS: Emergency Medicine
DX: K85.20 Alcohol induced acute pancreatitis without necrosis or infection (principal); R91.1 Solitary pulmonary nodule; F10.99 Alcohol use, unspecified with unspecified alcohol-induced disorder; F17.200 Nicotine dependence, unspecified, uncomplicated; Z20.822 Contact with and (suspected) exposure to COVID-19
CPT/HCPCS: J2765; J7120; Q9967